=== PATIENT | female | born 1965 | race Caucasian/White ===

== ENCOUNTER → 2023-05-18 11:00 | Outpatient (REF) | payer SELFPAY | LOC: HWRAD 11:00 | PROVIDERS: ATTENDING PHYSICIAN Nurse Practitioner | DX: E78.5 Hyperlipidemia, unspecified (principal) | CPT/HCPCS: 75571 ==

== ENCOUNTER → 2023-06-15 06:17 | Day surgery (SDC) | payer BC, SELFPAY | LOC: GI 06:17 | PROVIDERS: ATTENDING PHYSICIAN Surgery | DX: Z12.11 Encounter for screening for malignant neoplasm of colon (principal); Z80.0 Family history of malignant neoplasm of digestive organs; K57.30 Diverticulosis of large intestine without perforation or abscess without bleeding; K63.5 Polyp of colon | CPT/HCPCS: 45385; 88305 ==

== ENCOUNTER 2023-09-15 11:12 | Outpatient (RCR) | payer BC, SELFPAY | END 2023-09-15 23:59 | disposition home or self-care (01) | LOC: RPT 11:12 | PROVIDERS: ATTENDING PHYSICIAN Internal Medicine; FAMILY PHYSICIAN Nurse Practitioner | DX: R29.898 Other symptoms and signs involving the musculoskeletal system (principal); R53.81 Other malaise; Z73.6 Limitation of activities due to disability; M62.81 Muscle weakness (generalized); R26.81 Unsteadiness on feet; I26.09 Other pulmonary embolism with acute cor pulmonale | CPT/HCPCS: 97110; 97112; 97162; 97530 ==

== ENCOUNTER → 2023-09-15 11:15 | Outpatient (REF) | payer BC, SELFPAY | LOC: HWRAD 11:15 | PROVIDERS: ATTENDING PHYSICIAN Nurse Practitioner Acute Care; FAMILY PHYSICIAN Nurse Practitioner | DX: I82.563 Chronic embolism and thrombosis of calf muscular vein, bilateral (principal) | CPT/HCPCS: 93970 ==

== ENCOUNTER → 2023-10-01 11:16 | Outpatient (REF) | payer BC, SELFPAY | LOC: RCS 11:16 | PROVIDERS: ATTENDING PHYSICIAN Nuclear Medicine Nuclear Cardiology; FAMILY PHYSICIAN Nurse Practitioner | DX: I26.09 Other pulmonary embolism with acute cor pulmonale (principal) | CPT/HCPCS: 93306 ==

== ENCOUNTER 2023-10-11 11:04 | Outpatient (RCR) | payer BC, SELFPAY | END 2023-10-11 23:59 | disposition home or self-care (01) | LOC: RPT 11:04 | PROVIDERS: ATTENDING PHYSICIAN Internal Medicine; FAMILY PHYSICIAN Nurse Practitioner | DX: I26.09 Other pulmonary embolism with acute cor pulmonale (principal); R29.898 Other symptoms and signs involving the musculoskeletal system; R53.81 Other malaise; Z73.6 Limitation of activities due to disability; M62.81 Muscle weakness (generalized); R26.81 Unsteadiness on feet | CPT/HCPCS: 97110; 97112; 97140; 97530 ==

== ENCOUNTER → 2023-11-02 15:25 | Outpatient (REF) | payer BC, SELFPAY | LOC: HWWDC 15:25 | PROVIDERS: ATTENDING PHYSICIAN Obstetrics & Gynecology Gynecology; FAMILY PHYSICIAN Nurse Practitioner | DX: Z12.31 Encounter for screening mammogram for malignant neoplasm of breast (principal) | CPT/HCPCS: 77063; 77067 ==

== ENCOUNTER 2023-11-09 16:02 | Outpatient (RCR) | payer BC, SELFPAY | END 2023-11-09 23:59 | disposition home or self-care (01) | LOC: RPT 16:02 | PROVIDERS: ATTENDING PHYSICIAN Internal Medicine; FAMILY PHYSICIAN Nurse Practitioner | DX: R29.898 Other symptoms and signs involving the musculoskeletal system (principal); R53.81 Other malaise; Z73.6 Limitation of activities due to disability; M62.81 Muscle weakness (generalized); R26.81 Unsteadiness on feet; R26.2 Difficulty in walking, not elsewhere classified; Z86.711 Personal history of pulmonary embolism | CPT/HCPCS: 97110; 97112; 97530 ==

== ENCOUNTER → 2023-11-19 08:04 | Outpatient (REF) | payer BC, SELFPAY | LOC: HWRAD 08:04 | PROVIDERS: ATTENDING PHYSICIAN Internal Medicine Critical Care Medicine; FAMILY PHYSICIAN Nurse Practitioner | DX: I26.09 Other pulmonary embolism with acute cor pulmonale (principal); Z98.890 Other specified postprocedural states; R59.0 Localized enlarged lymph nodes | CPT/HCPCS: 71275; Q9967 ==

== ENCOUNTER 2023-12-14 15:00 | Outpatient (RCR) | payer BC, SELFPAY | END 2023-12-14 16:47 | disposition home or self-care (01) | LOC: RPT 15:00 | PROVIDERS: ATTENDING PHYSICIAN Internal Medicine; FAMILY PHYSICIAN Nurse Practitioner | DX: I26.09 Other pulmonary embolism with acute cor pulmonale (principal); R29.898 Other symptoms and signs involving the musculoskeletal system; R53.81 Other malaise; M62.81 Muscle weakness (generalized); R26.81 Unsteadiness on feet | CPT/HCPCS: 97110; 97112; 97530 ==

== ENCOUNTER → 2024-01-25 14:38 | Outpatient (REF) | payer BC, SELFPAY | LOC: RAD 14:38 | PROVIDERS: ATTENDING PHYSICIAN Obstetrics & Gynecology Gynecology; FAMILY PHYSICIAN Internal Medicine | DX: Z78.0 Asymptomatic menopausal state (principal) | CPT/HCPCS: 77080 ==

== ENCOUNTER → 2024-04-25 13:19 | Outpatient (REF) | payer BC, SELFPAY ==
[2024-04-27 18:46] LABS: Bordetella Pertussis Ab, IgA 0.4 IV (<=1.1); Bordetella Pertussis Ab, IgG 1.85 IV (<=1.04); Bordetella Pertussis Ab, IgM 0.2 IV (<=1.1)
[2024-04-28 06:45] LABS: B. Pertussis, IgG IB FHA Positive; B. Pertussis, IgG IB PT Positive; B. Pertussis, IgG IB PT100 Equivocal
== END ==
LOC: REG 13:19
PROVIDERS: ATTENDING PHYSICIAN Hospitalist
DX: R05.3 Chronic cough (principal)
CPT/HCPCS: 86615

== ENCOUNTER → 2024-06-08 11:50 | Outpatient (REF) | payer BC, SELFPAY | LOC: RCS 11:50 | PROVIDERS: ATTENDING PHYSICIAN Orthopaedic Surgery; FAMILY PHYSICIAN Internal Medicine | DX: Z01.818 Encounter for other preprocedural examination (principal) | CPT/HCPCS: 93005 ==

== ENCOUNTER 2024-07-14 13:04 | Outpatient (RCR) | payer BC, SELFPAY | END 2024-07-14 23:59 | disposition home or self-care (01) | LOC: RPT 13:04 | PROVIDERS: ATTENDING PHYSICIAN Orthopaedic Surgery; FAMILY PHYSICIAN Internal Medicine | DX: Z47.89 Encounter for other orthopedic aftercare (principal); M75.02 Adhesive capsulitis of left shoulder; Z73.6 Limitation of activities due to disability; M62.81 Muscle weakness (generalized) | CPT/HCPCS: 97010; 97110; 97140; 97161; 97530 ==

== ENCOUNTER 2024-08-14 15:16 | Outpatient (RCR) | payer BC, SELFPAY | END 2024-08-14 23:59 | disposition home or self-care (01) | LOC: RPT 15:16 | PROVIDERS: ATTENDING PHYSICIAN Orthopaedic Surgery; FAMILY PHYSICIAN Internal Medicine | DX: Z47.89 Encounter for other orthopedic aftercare (principal); M75.02 Adhesive capsulitis of left shoulder; Z73.6 Limitation of activities due to disability; M62.81 Muscle weakness (generalized) | CPT/HCPCS: 97010; 97110; 97112; 97140 ==

== ENCOUNTER 2024-08-29 15:10 | Outpatient (RCR) | payer BC, SELFPAY | END 2024-08-29 23:59 | disposition home or self-care (01) | LOC: RPT 15:10 | PROVIDERS: ATTENDING PHYSICIAN Orthopaedic Surgery; FAMILY PHYSICIAN Internal Medicine | DX: Z47.89 Encounter for other orthopedic aftercare (principal); M75.02 Adhesive capsulitis of left shoulder; Z73.6 Limitation of activities due to disability; M62.81 Muscle weakness (generalized) | CPT/HCPCS: 97110; 97112; 97140; 97530 ==

== ENCOUNTER 2024-10-12 13:26 | Outpatient (RCR) | payer BC, SELFPAY | END 2024-10-12 23:59 | disposition home or self-care (01) | LOC: RPT 13:26 | PROVIDERS: ATTENDING PHYSICIAN Obstetrics & Gynecology Gynecology; FAMILY PHYSICIAN Internal Medicine | DX: M62.89 Other specified disorders of muscle (principal); Z73.6 Limitation of activities due to disability; N39.46 Mixed incontinence; R35.0 Frequency of micturition | CPT/HCPCS: 97014; 97110; 97112; 97140; 97162; 97530 ==

== ENCOUNTER 2024-11-08 13:26 | Outpatient (RCR) | payer BC, SELFPAY | END 2024-11-08 23:59 | disposition home or self-care (01) | LOC: RPT 13:26 | PROVIDERS: ATTENDING PHYSICIAN Obstetrics & Gynecology Gynecology; FAMILY PHYSICIAN Internal Medicine | DX: M62.89 Other specified disorders of muscle (principal); Z73.6 Limitation of activities due to disability; N39.46 Mixed incontinence; R35.0 Frequency of micturition | CPT/HCPCS: 97112; 97140; 97530 ==

== ENCOUNTER 2024-12-13 13:19 | Outpatient (RCR) | payer BC, SELFPAY | END 2024-12-13 23:59 | disposition home or self-care (01) | LOC: RPT 13:19 | PROVIDERS: ATTENDING PHYSICIAN Obstetrics & Gynecology Gynecology; FAMILY PHYSICIAN Internal Medicine | DX: M62.89 Other specified disorders of muscle (principal); Z73.6 Limitation of activities due to disability; N39.46 Mixed incontinence; R35.0 Frequency of micturition | CPT/HCPCS: 97014; 97112; 97530 ==

== ENCOUNTER → 2025-01-02 14:23 | Outpatient (REF) | payer BC, SELFPAY | LOC: HWWDC 14:23 | PROVIDERS: ATTENDING PHYSICIAN Hospitalist | DX: Z12.31 Encounter for screening mammogram for malignant neoplasm of breast (principal) | CPT/HCPCS: 77063; 77067 ==

== ENCOUNTER 2025-01-10 07:24 | Outpatient (RCR) | payer BC, SELFPAY | END 2025-01-10 23:59 | disposition home or self-care (01) | LOC: RPT 07:24 | PROVIDERS: ATTENDING PHYSICIAN Obstetrics & Gynecology Gynecology; FAMILY PHYSICIAN Internal Medicine | DX: M62.89 Other specified disorders of muscle (principal); Z73.6 Limitation of activities due to disability; N39.46 Mixed incontinence; R35.0 Frequency of micturition | CPT/HCPCS: 97014; 97112; 97530 ==

== ENCOUNTER 2025-01-17 12:07 | Outpatient (RCR) | payer BC, SELFPAY | END 2025-02-12 07:12 | disposition home or self-care (01) | LOC: RPT 12:07 | PROVIDERS: ATTENDING PHYSICIAN Obstetrics & Gynecology Gynecology; FAMILY PHYSICIAN Internal Medicine | DX: M62.89 Other specified disorders of muscle (principal); Z73.6 Limitation of activities due to disability; N39.46 Mixed incontinence; R35.0 Frequency of micturition | CPT/HCPCS: 97014; 97110; 97112; 97530 ==

== ENCOUNTER → 2025-01-22 08:41 | Outpatient (REF) | payer BC, SELFPAY | LOC: WDC 08:41 | PROVIDERS: ATTENDING PHYSICIAN Hospitalist | DX: R92.8 Other abnormal and inconclusive findings on diagnostic imaging of breast (principal) | CPT/HCPCS: 77065 ==